=== PATIENT | female | born 1955 | race Caucasian/White ===

== ENCOUNTER → 2017-01-07 | Outpatient (CLI) | payer BC | LOC: GMAL 10:48 | PROVIDERS: ATTEND Family Medicine | DX: D51.3 Other dietary vitamin B12 deficiency anemia (principal); E55.9 Vitamin D deficiency, unspecified ==

== ENCOUNTER → 2018-06-10 | Outpatient (CLI) | payer MEDICARE ==
--- NOTE | 2018-06-13 16:01 | MAM ---
EXAM DESCRIPTION: 3D Screening BILATERAL : Digital Mammography. CLINICAL HISTORY: 63 years Female SCREENING . No complaints. No personal or family history of breast cancer. Childbirth. Postmenopausal. No HRT. Lifetime risk of developing breast cancer (Tyrer-Cuzick model)(%): 5.6. COMPARISON: 2-D digital screening bilateral mammography. 10/05/2013. No prior reports available. TECHNIQUE: Bilateral CC and MLO projection full-field images, digital tomosynthesis mammographic technique. Bilateral digital 2-D full-field MLO images. CAD not available for tomosynthesis or 2-D images. FINDINGS: The breast parenchymal density pattern is: Scattered areas of fibroglandular density. No skin thickening or nipple retraction. Left axillary lymph nodes. Bilateral solitary microcalcifications. No new focal, stellate mass or density, focal asymmetry , and no suspicious microcalcifications bilaterally. Stable mammograms compared to prior study. Taking into account, differences in mammographic technique. IMPRESSION: Benign exam. BIRAD CATEGORY: 2 BENIGN FINDINGS. RECOMMENDATIONS: FOLLOW UP: Routine digital bilateral mammographic screening, one year interval from May 2018. Written communication explaining the IMPRESSION and follow-up, will be mailed to the patient and referring health care provider. According to the [employer], yearly mammograms are recommended starting at age 40 and continuing as long as a woman is in good health. Any breast change noted on a breast self-exam should be reported promptly to the patient's healthcare provider. Breast MRI is recommended for women with an approximately 20-25% or greater lifetime risk of breast cancer, including women with a strong family history of breast or ovarian cancer and women who have been treated for Hodgkin's disease. A negative mammographic report should not delay tissue diagnosis in patients with significant clinical history or physical findings. Extremely dense breast tissue limits the sensitivity of digital mammography. Electronically signed by: Nadeem Garcia MD 06/13/2018 4:00 PM [facility]
== END ==
LOC: MAMMO 09:08
PROVIDERS: ATTEND Family Medicine
DX: Z12.31 Encounter for screening mammogram for malignant neoplasm of breast (principal); D51.3 Other dietary vitamin B12 deficiency anemia; R53.83 Other fatigue; E55.9 Vitamin D deficiency, unspecified

== ENCOUNTER → 2018-08-23 | Outpatient (CLI) | payer MEDICARE ==
--- NOTE | 2018-08-23 11:21 | RAD ---
EXAM DESCRIPTION: Left calcaneus, 2 views CLINICAL HISTORY: PAIN IN LEFT FOOT FINDINGS/ IMPRESSION: Large well-corticated plantar calcaneal spur. Small Achilles insertional enthesophyte. No fracture of the calcaneus. No lytic or blastic bony lesion. Normal mineralization No advanced arthrosis subtalar or calcaneocuboid Electronically signed by: Anthony Reyes MD 08/23/2018 11:20 AM [facility]
== END ==
LOC: RAD 10:12
PROVIDERS: ATTEND Orthopaedic Surgery
DX: M79.672 Pain in left foot (principal); M77.32 Calcaneal spur, left foot

== ENCOUNTER 2018-10-21 05:39 | Day surgery (SDC) | payer MEDICARE ==
[2018-10-21] MEDS ORDERED: LACTATED RINGERS 1,000 ML ONE (05:55)
[2018-10-21] MEDS ORDERED: PROPOFOL 200 MG/20 ML VIAL IV ONE (07:00)
--- NOTE | 2018-10-21 10:43 | OP ---
DATE OF PROCEDURE: 10/21/18 PREPROCEDURE DIAGNOSIS: 1. FIT positive. POSTPROCEDURE DIAGNOSIS: 1. Moderate to severe diverticulosis. 2. Large non-bleeding internal hemorrhoids. PROCEDURE: 1. Colonoscopy. SURGEON: Elian Tapia MD COMPLICATIONS: No immediate complications. SEDATION: The patient was sedated via IV propofol by the Anesthesia Department. CONSENT: Prior to the procedure, risks, benefits and alternatives to the therapy were discussed with the patient. The risks included bleeding, infection, perforation and . The patient agreed to the procedure and signed a consent. PREPROCEDURE ANESTHESIA ASSESSMENT: An examination revealed no contraindication to sedation. Airway examination demonstrated a Mallampati class type 2, ASA grade assessment type 2. Throughout the procedure, the patient's blood pressure and additional vital signs were closely monitored. PROCEDURE: The patient was placed in the left lateral decubitus position and a rectal examination was performed. The rectal examination was within normal limits. The Olympus colonoscope was passed in the anus, rectum, traversing the colon to the level of the cecum as identified by the appendiceal orifice. The scope was retracted and the mucosa was visualized. The entirety of the exam was performed under direct visualization. Retroflexion was performed in the rectum. Preparation quality was good. The withdrawal time was greater than 6 minutes. The patient tolerated the procedure well. FINDINGS: 1. Moderate to severe diverticulosis was found predominantly in the sigmoid colon causing significant narrowing of the colon. Maneuvering of the scope was required in order to advance carefully through this area. Additional diverticula openings were seen scattered in the transverse and ascending colon. 2. Large non-bleeding internal hemorrhoids, grade 2, were found in retroflexion. 3. The remainder of the examination of the colon was unremarkable. RECOMMENDATION: 1. Return the patient home. 2. Resume previous diet favoring high-fiber foods. 3. May start Citrucel 1 dose b.i.d. 4. Repeat colonoscopy in the next 10 years. 5. Primary care physician may check FIT/Cologuard in 3 to 5 years' time. 6. Return to my office p.r.n. 7. Findings were discussed with the patient and family members. #[id number] MTDD
[2018-10-21 10:46] VITALS: O2SAT 98
[2018-10-21 11:19] VITALS: BP 118/68; TEMP 97
== END 2018-10-21 11:05 | disposition home or self-care (01) ==
LOC: AMB 05:39
PROVIDERS: ATTEND Internal Medicine Gastroenterology
DX: R19.5 Other fecal abnormalities (principal); K57.30 Diverticulosis of large intestine without perforation or abscess without bleeding; K64.1 Second degree hemorrhoids; I10 Essential (primary) hypertension; G43.909 Migraine, unspecified, not intractable, without status migrainosus; Z88.2 Allergy status to sulfonamides; Z79.899 Other long term (current) drug therapy
CPT/HCPCS: 00811; 45378; J3490; J7120

== ENCOUNTER 2019-12-25 18:36 | Emergency (ER) | payer MEDICARE ==
[2019-12-25] MEDS ORDERED: SODIUM CHLORIDE 0.9% (FLUSH) 10 ML SYG IV PRN (19:27)
--- NOTE | 2019-12-25 19:28 | ED.PDOC ---
History of Present Illness - General Time Seen by Provider: 12/25/19 19:27 Source: patient - History of Present Illness Initial Comments: 64 yo female who presents with CC of jaundice and itching. Reports several months of progressive symptomatology. First began 2 to 3 months ago with right lower flank/back pain which radiated around to the right lower quadrant. She tried numerous outpatient therapies including laxatives, PPI, and chiropractor visits without relief. Approximately 2 weeks ago she developed some dark urination with frequency and dysuria and so her PCP put her on Cipro 500 mg twice daily which she finished 1 day ago. She reports new onset symptoms of itching right when she began the Cipro. She has also reported nausea, poor appetite and p.o. intake, weight loss, fatigue for the past 1 to 2 weeks. Today she noticed that her skin had become very yellow, unsure when it began but noticed it today for the first time. Her PCP recommended that she come to the ED for evaluation. Currently denies any abdominal pain. Still reports some dark urination but no dysuria, hematuria. Reports nausea with one episode of NBNB emesis 1 day ago. Reports some mild constipation but stools otherwise normal. Denies any fever, chills, chest pain, cough, dyspnea, sore throat, rashes, leg swelling. PCP is Dr. Vaughn. Denies any prior abdominal surgeries. Allergies/Adverse Reactions: Allergies Sulfa Drugs Allergy (Verified 12/25/19 19:32) Ciprofloxacin [From Cipro] Adverse Reaction (Verified 12/25/19 19:32) Headache Home Medications: Ambulatory Orders Advil 200 mg PO PRN PRN 10/18/18 Glucosamine 1 tablet PO DAILY 10/18/18 Imitrex 1 tablet PO PRN PRN 10/18/18 Lisinopril 20 mg PO DAILY 10/18/18 Multivitamin 1 tablet PO DAILY 10/18/18 Vitamin D 1 tablet PO DAILY 10/18/18 Review of Systems - Review of Systems Review of Systems: 12/25/19 20:39 as per HPI All other Systems: Reviewed and Negative Past Medical History (General) - Patient Medical History Hx Congestive Heart Failure: No Hx Diabetes: No Hx MRSA: No Family Medical History - Family History Mother Family History: Unknown Physical Exam - Physical Exam General Appearance: Alert, Comfortable, No apparent distress Eye Exam: bilateral scleral icterus Ears, Nose, Throat: hearing grossly normal, normal ENT inspection, normal pharynx Neck: non-tender, full range of motion, supple, normal inspection Respiratory: lungs clear, normal breath sounds, no respiratory distress, no accessory muscle use, respiratory distress Cardiovascular/Chest: normal peripheral pulses, no edema, no gallop, no JVD, no murmur, tachycardia Peripheral Pulses: radial,right: 2+, radial,left: 2+ Gastrointestinal/Abdominal: normal bowel sounds, non tender, soft, no organomegaly Back Exam: normal inspection, no CVA tenderness, no vertebral tenderness Extremity: normal range of motion, non-tender, normal inspection, no pedal edema, no calf tenderness, normal capillary refill Neurologic: station examiner II-XII nml as tested, no motor/sensory deficits, alert, normal mood/affect, oriented x 3 Skin Exam: warm/dry, jaundice - marked throughout Progress - Progress Progress: 12/25/19 18:40 Jaundice, nausea, weight loss -Concern for malignancy. Consider pancreatic cancer, hepatic cancer, cholangiocarcinoma. Consider also gallstones, acute cholecystitis, acute hepatitis, autoimmune hepatitis, intrinsic liver disease, toxicity, iatrogenic, anemia, metabolic derangement, other. -Obtain blood work, UA, place PIV, 1L NS bolus, plan for CT scans of abdomen/pelvis and chest 12/25/19 23:37 -Lab work revealed total bilirubin level of 13.6 (8.6 direct, 5.0 indirect), AST/ALT 499/937, alk phos 157. CBC with normal WBC count but 5.8% eosinophils, 51% neutrophils, 22% lymphocytes. Amylase/lipase WNL. Mild hyponatremia. UA with 1020 WBC, 2+ bacteria, negative nitrites, large bilirubin, suspicious for UTI. Tylenol & salicylates levels are WNL. -CT abdomen pelvis revealed slightly dilated intrahepatic biliary ducts and pancreatic duct without evidence of obstruction or masses or other acute processes noted. CT of the chest showed no acute processes. -Given the markedly elevated bilirubin level along with moderately elevated LFTs and acute onset jaundice with abnormal CT findings, feel that patient needs urgent GI referral. Will need further imaging to explore possible obstructive processes versus other causes of acute liver injury/inflammation. Patient has been accepted for transfer to [facility]. Has no inpatient beds available, will go through the ED. She has remained stable, currently denies any acute symptoms or pain. Her tachycardia is resolved with IV fluids. Will give a dose of Rocephin 1 g IV for UTI. -Discussed all the above with the patient's PCP, Dr. Vaughn, who is in agreement of the plan. Sixto Landis MD Billing #[id number] 12/25/19 19:27 IV Care:Saline Lock per Protoc QSHIFT Telemetry .ONCE Sodium Chloride 0.9% (Flush) [Saline Flush Syringe] 10 ml IV PRN PRN Pulse Oximetry Assessment DAILY 12/25/19 19:30 BLOOD CULTURE Stat 12/25/19 19:35 ACETAMINOPHEN Stat CREATINE PHOSPHOKINASE Stat LD-L/LDH Stat SALICYLATE Stat 12/25/19 19:45 Urine Culture Stat EKG STAT 12/25/19 20:33 Hold Metformin x 48Hrs [id number] 12/25/19 20:38 Hold Metformin x 48Hrs [id number] 12/25/19 23:09 Sodium Chloride 0.9% 1000ML [Ns 1000 ml] 1,000 ml IVS ONCE 12/26/19 09:00 Pulse Ox Daily Laboratory Results - last 24 hr 12/25/19 12/25/19 12/25/19 19:33 19:35 19:36 WBC 8.3 RBC 4.57 Hgb 14.2 Hct 41.4 MCV 90.6 MCH 31.0 MCHC 34.2 RDW 16.0 H Plt Count 331 MPV 9.0 Absolute Neuts (auto) 4.30 Absolute Lymphs (auto) 1.80 Absolute Monos (auto) 1.60 H Absolute Eos (auto) 0.50 H Absolute Basos (auto) 0.10 Neutrophils % 51.4 Lymphocytes % 22.0 Monocytes % 19.5 H Eosinophils % 5.8 H Basophils % 1.3 Sodium Potassium Chloride Carbon Dioxide Anion Gap BUN Creatinine BUN/Creatinine Ratio Random Glucose Serum Osmolality Lactic Acid Calcium Total Bilirubin Direct Bilirubin 8.6 H AST ALT Alkaline Phosphatase B-Natriuretic Peptide Serum Total Protein Albumin Globulin Albumin/Globulin Ratio Amylase 75 Lipase Urine Color Urine Appearance Urine pH Ur Specific [place] Urine Protein Urine Glucose (UA) Urine Ketones Urine Blood Urine Nitrite Urine Bilirubin Urine Urobilinogen Ur Leukocyte Esterase Urine RBC Urine WBC Ur Epithelial Cells Amorphous Sediment Urine Bacteria 12/25/19 12/25/19 12/25/19 19:36 19:36 19:45 WBC RBC Hgb Hct MCV MCH MCHC RDW Plt Count MPV Absolute Neuts (auto) Absolute Lymphs (auto) Absolute Monos (auto) Absolute Eos (auto) Absolute Basos (auto) Neutrophils % Lymphocytes % Monocytes % Eosinophils % Basophils % Sodium 132 L Potassium 3.8 Chloride 101 Carbon Dioxide 22 Anion Gap 12.8 BUN 21 H Creatinine 0.85 BUN/Creatinine Ratio 24.7 H Random Glucose 115 H Serum Osmolality 268.4 L Lactic Acid 1.0 Calcium 9.2 Total Bilirubin 13.6 H* Direct Bilirubin AST 499 H ALT 937 H Alkaline Phosphatase 157 H B-Natriuretic Peptide 55.2 Serum Total Protein 8.0 Albumin 3.5 Globulin 4.5 H Albumin/Globulin Ratio 0.8 L Amylase Lipase 44 Urine Color [place] H Urine Appearance Cloudy Urine pH 5.5 Ur Specific [place] 1.015 Urine Protein Trace Urine Glucose (UA) Negative Urine Ketones Negative Urine Blood Trace-intact H Urine Nitrite Negative Urine Bilirubin Large Urine Urobilinogen 1.0 Ur Leukocyte Esterase Small H Urine RBC 5-10 H Urine WBC 10-20 H Ur Epithelial Cells 1-3 Amorphous Sediment 2+ Urine Bacteria 2+ H - EKG/XRAY/CT EKG: Sinus, Tachy - HR 120, no ST elevations or Q waves noted, axis normal, intervals normal, no prior EKG for comparison. Departure - Departure Clinical Impression: Acute hepatitis, Pancreatic duct dilated, Direct hyperbilirubinemia, Indirect hyperbilirubinemia UTI (urinary tract infection) Qualifiers: Urinary tract infection type: acute cystitis Hematuria presence: without hematuria Qualified Code(s): N30.00 - Acute cystitis without hematuria Time of Disposition: 23:31 Disposition: Transfer to Hospital Condition: Fair Referrals: Xu Vaughn III, MD [Primary Care Provider] - 1-2 Weeks Home Medications: Ambulatory Orders Advil 200 mg PO PRN PRN 10/18/18 Glucosamine 1 tablet PO DAILY 10/18/18 Imitrex 1 tablet PO PRN PRN 10/18/18 Lisinopril 20 mg PO DAILY 10/18/18 Multivitamin 1 tablet PO DAILY 10/18/18 Vitamin D 1 tablet PO DAILY 10/18/18 Transfer to Outside Facility - Transfer Information Decision to Transfer Date: 12/25/19 Decision to Transfer Time: 23:31 Reason for Transfer: required specialist not available - gastroenterology Accepting Provider:: Dr. Aleman Accepting Facility: [place]
[2019-12-25] MEDS ORDERED: SODIUM CHLORIDE 0.9% 1000ML 1,000 ML IVS ONE ×2 (19:32→23:09)
--- NOTE | 2019-12-25 21:50 | CT ---
EXAMINATION: POSTCONTRAST ABDOMEN AND PELVIC CT EXAMINATION. REFERRAL DIAGNOSIS: Nausea, itching and jaundice. COMPARISONS: No comparison abdomen and pelvic CT examinations are available. PROCEDURE: Using low-dose helical technique, thin section axial images were performed through the abdomen and pelvis after the uncomplicated intravenous administration of nonionic iodinated contrast material. No oral contrast was administered. FINDINGS: Suspect mild to moderate intrahepatic biliary ductal dilatation. The pancreatic portion of the common duct is at the upper limits of normal measuring 6.3 mm in diameter. 6 noncalcified cysts in the left kidney ranging in size from 8.5 mm to 12 mm in greatest transverse dimension. The liver, spleen, fluid-filled gallbladder, pancreas, adrenal glands, kidneys, renal collecting systems, ureters and unenhanced urinary bladder are otherwise normal. The unenhanced nondistended stomach and duodenum cannot be evaluated. Moderate sigmoid diverticulosis without diverticulitis. Suspect remote appendectomy. Numerous loops of unenhanced small bowel colon are otherwise grossly normal. No evidence of chronic inflammatory bowel disease, mechanical small bowel obstruction or extraluminal bowel gas. No retroperitoneal hemorrhage or evidence of psoas muscle abscess. Size and contour the uterus appears grossly normal for age. No groin hernia, pelvic floor hernia or abdominal wall hernia. Mild atherosclerotic calcification in the abdominal aorta without aneurysm or dissection. Greatest AP diameter of the infrarenal abdominal aorta equals 1.7 cm. No imaging follow-up recommended. Bones are normal for age. Bibasilar scar versus atelectasis. IMPRESSION: 1. Mild to moderate intrahepatic biliary ductal dilatation. The pancreatic portion the common duct is at the upper limits of normal measuring 6.2 mm in greatest diameter. 2. No calcified cholelithiasis or CT evidence of cholecystitis. Gallbladder ultrasound would prove useful for further evaluation. 3. Multiple small bilateral renal cysts. The kidneys, ureters and unenhanced urinary bladder appear otherwise normal. 4. Moderate sigmoid colon diverticulosis without diverticulitis. Suspect remote appendectomy. This exam was performed according to our departmental dose-optimization program, which includes automated exposure control, adjustment of the mA and/or kV according to patient size and/or use of iterative reconstruction technique. Electronically signed by: Benedict Felipe MD 12/25/2019 9:48 PM CDT
--- NOTE | 2019-12-25 21:56 | CT ---
EXAMINATION: Postcontrast chest CT examination. REFERRAL DIAGNOSIS: Nausea, jaundice and weight loss. COMPARISONS: No comparison chest CT examinations are currently available. PROCEDURE: Using low-dose helical technique, thin section axial images were performed through the chest after the uncomplicated intravenous administration of nonionic iodinated contrast material. No oral contrast was administered. CHEST CT FINDINGS: Mild atherosclerotic calcification in the thoracic aorta without aneurysm or dissection. No mediastinal hematoma. Greatest diameter of the ascending thoracic aorta measures approximately 3.3 cm. Cardiac size and contour appears grossly normal. No pericardial effusion. No convincing coronary artery calcification given cardiac motion artifact. No suspicious hilar, mediastinal or axillary dislocation. Bibasilar scar versus atelectasis. The lungs are otherwise clear. No regions of pleural thickening or pleural calcification. No pleural effusions or pneumothorax. Bones appear normal for age. IMPRESSION: 1. Bibasilar scar versus atelectasis. The lungs are otherwise clear. No evidence of pleural based, pulmonary or mediastinal based malignancy. 2. Great vessels the chest are normal for age. No aneurysm, dissection or pulmonary embolism. 3. Bones appear normal for age. This exam was performed according to our departmental dose-optimization program, which includes automated exposure control, adjustment of the mA and/or kV according to patient size and/or use of iterative reconstruction technique. Electronically signed by: Benedict Felipe MD 12/25/2019 9:54 PM CDT
[2019-12-25 22:16] VITALS: TEMP 98.9
[2019-12-25] MEDS ORDERED: SODIUM CHLORIDE 0.9% 1000ML 1,000 ML ONE (22:40)
[2019-12-25] MEDS ORDERED: cefTRIAXone SODIUM 1 GM in SODIUM CHL 0.9% 50ML MIN-BAG+ 50 ML IVPB ONE (23:46)
[2019-12-25 23:54] VITALS: BP 124/84; O2SAT 95
== END 2019-12-26 00:05 | disposition short-term general hospital (02) ==
LOC: ER 18:36
DX: B17.9 Acute viral hepatitis, unspecified (principal); N30.00 Acute cystitis without hematuria; K86.89 Other specified diseases of pancreas; E80.6 Other disorders of bilirubin metabolism; R00.0 Tachycardia, unspecified
CPT/HCPCS: 36415; 71260; 74177; 80053; 80329; 81001; 82150; 82248; 82550; 83605; 83615; 83690; 83880; 85025; 87040; 87086; 93005; J0696; J7030; J7050

== ENCOUNTER → 2020-01-03 | Outpatient (CLI) | payer MEDICARE | LOC: LAB.O 09:17 | PROVIDERS: ATTEND Surgery | DX: R17 Unspecified jaundice (principal) ==

== ENCOUNTER → 2020-01-05 | Outpatient (CLI) | payer MEDICARE | LOC: GMAL 12:35 | PROVIDERS: ATTEND Family Medicine | DX: E80.6 Other disorders of bilirubin metabolism (principal); R53.83 Other fatigue ==

== ENCOUNTER → 2020-01-12 | Outpatient (CLI) | payer MEDICARE | LOC: GMAL 12:56 | PROVIDERS: ATTEND Family Medicine | DX: R94.5 Abnormal results of liver function studies (principal); I10 Essential (primary) hypertension ==

== ENCOUNTER → 2020-08-12 | Outpatient (CLI) | payer MEDICARE | LOC: GMAL 14:28 | PROVIDERS: ATTEND Family Medicine | DX: M25.50 Pain in unspecified joint (principal) ==